=== PATIENT | male | born 1995 | race Caucasian/White ===

== ENCOUNTER 2020-12-10 15:30 | Emergency (ER) | payer OTHER ==
[2020-12-10 16:09] VITALS: BP 130/77; PULSE 80; TEMP 98.5; BMI 32.1
== END 2020-12-10 17:16 | disposition home or self-care (01) ==
LOC: FER 15:30
DX: M79.642 Pain in left hand (principal); M25.532 Pain in left wrist; M25.572 Pain in left ankle and joints of left foot
CPT/HCPCS: 70450-TC; 72125-TC; 99284-25

== ENCOUNTER 2022-08-06 21:54 | Emergency (ER) | payer OTHER ==
[2022-08-06 22:09] VITALS: BP 144/92; PULSE 86; RESP 16; TEMP 99.2; BMI 33.1
== END 2022-08-06 22:50 | disposition home or self-care (01) ==
LOC: FER 21:54
DX: R10.31 Right lower quadrant pain (principal)
CPT/HCPCS: 99281-25